=== PATIENT | male | born 1985 | race African-American/Black ===

== ENCOUNTER 2019-09-22 10:29 | Emergency (ER) | payer SELFPAY ==
[~2019-09-22] VITALS: Ht 177.8 cm; Wt 105.0 kg
[2019-09-22] MEDS ORDERED: ACETAMINOPHEN WITH CODEINE 300/30MG TABLET PO ONE (11:00)
[2019-09-22] MEDS ORDERED: IBUPROFEN 600MG TABLET PO ONE (11:15)
[2019-09-22 12:20] VITALS: BP 148/78
== END 2019-09-22 12:35 | disposition home or self-care (01) ==
LOC: ER 10:29
DX: M79.10 Myalgia, unspecified site (principal); V43.52XA Car driver injured in collision with other type car in traffic accident, initial encounter; Y93.89 Activity, other specified; Y92.488 Other paved roadways as the place of occurrence of the external cause
CPT/HCPCS: 73030; 73610; 99283